=== PATIENT | male | born 1980 | race Caucasian/White ===

== ENCOUNTER 2022-10-10 05:16 | Emergency (ER) | payer MEDICAID ==
[~2022-10-10] VITALS: Ht 172.7 cm; Wt 72.7 kg
[2022-10-10 05:17] VITALS: BP 154/86
== END 2022-10-10 06:08 | disposition home or self-care (01) ==
LOC: ER 05:17
DX: F11.129 Opioid abuse with intoxication, unspecified (principal); F15.10 Other stimulant abuse, uncomplicated
CPT/HCPCS: 99283

== ENCOUNTER 2023-01-25 06:20 | Emergency (ER) | payer MEDICAID ==
[~2023-01-25] VITALS: Ht 180.3 cm; Wt 75.0 kg
[2023-01-25] MEDS ORDERED: LIDOcaine 1% W/epiNEPHrine 1:100,000 20ml vial SQ ONE (07:10)
[2023-01-25] MEDS ORDERED: HYDROcodone/acetaminophen 10/325mg tab PO ONE (07:10)
[2023-01-25] MEDS ORDERED: sulfamethoxazole/trimethoprim DS (800/160mg) tablet PO ONE (07:10)
[2023-01-25] MEDS ORDERED: LIDOCAINE 2%/EPI 1:100,000 inj. Multi-dose 20 ML VIAL SQ ONE (07:20)
[2023-01-25] MEDS ORDERED: HYDR-3972 PO (07:23)
[2023-01-25] MEDS ORDERED: SULF1TAB49 PO (07:23)
[2023-01-25 07:57] VITALS: BP 142/77
== END 2023-01-25 07:58 | disposition home or self-care (01) ==
LOC: ER 06:21
DX: L02.31 Cutaneous abscess of buttock (principal); F15.10 Other stimulant abuse, uncomplicated; Z79.899 Other long term (current) drug therapy
CPT/HCPCS: 10060; 99283; A6266; A6253; A6449

== ENCOUNTER 2023-03-09 01:18 | Emergency (ER) | payer MEDICAID ==
[~2023-03-09] VITALS: Ht 180.3 cm; Wt 72.7 kg
[2023-03-09 04:07] VITALS: BP 118/72
[2023-03-09] MEDS ORDERED: NALO4SPR BOTHNARES (04:07)
== END 2023-03-09 04:15 | disposition home or self-care (01) ==
LOC: ER 01:19
DX: T40.2X1A Poisoning by other opioids, accidental (unintentional), initial encounter (principal); R41.82 Altered mental status, unspecified; F15.10 Other stimulant abuse, uncomplicated; Y92.89 Other specified places as the place of occurrence of the external cause
CPT/HCPCS: 99283